=== PATIENT | male | born 1960 | race Caucasian/White ===

== ENCOUNTER 2022-02-27 08:53 | Inpatient (IN) | payer BC ==
[2022-02-27] VITALS (26 sets, daily range): BP systolic 93–115; BP diastolic 60–76
[~2022-02-27] VITALS: Ht 175.3 cm; Wt 101.2 kg
[~2022-02-27 08:53] MED LIST: ALBU2.5V10 INH; ALBU8.5H INH; ALBUTEROL SULFATE 2.5 MG/0.5 ML INH NEB SOLN INH ONE; LIDOCAINE PRES-FREE 2% 10ML AMP NEB ONE
[2022-02-27] MEDS ORDERED: LR 1,000 ML IV SCH (10:00)
[2022-02-27] MEDS ORDERED: CETACAINE SPRAY 5GM As Ordered ONE (10:10)
[2022-02-27] MEDS ORDERED: ISOVUE-300 61% 50ML VIAL As Ordered ONE (10:10)
[2022-02-27] MEDS ORDERED: EPINEPHrine 1MG/10ML SYRINGE 1.5IN As Ordered ONE (10:11)
[2022-02-27] MEDS ORDERED: THROMBIN 5,000 UNITS VIAL As Ordered ONE (10:12)
[2022-02-27 10:39] LABS: TOTAL PROTEIN 6.6 G/DL (5.7-8.2)
[2022-02-27] MEDS ORDERED: MORPHINE 2 MG/ML 1ML VIAL IV PRN (12:05)
[2022-02-27] MEDS ORDERED: oxyCODONE 5MG TAB PO PRN (12:05)
[2022-02-27] MEDS ORDERED: ONDANSETRON 4MG 2ML VIAL IV PRN (12:05)
[2022-02-27] MEDS ORDERED: fentaNYL 100 MCG/2 ML INJECTION IV PRN (12:05)
[2022-02-27] MEDS ORDERED: PROPOFOL 1,000 MG/100 ML VIAL As Ordered ONE (12:06)
[2022-02-27] MEDS ORDERED: MIDAZOLAM INJ 2MG/2ML VIAL (J2250 PER 1MG) As Ordered ONE (12:32)
[2022-02-27] MEDS: MIDAZOLAM INJ 2MG/2ML VIAL (J2250 PER 1MG) IV PRN ×4 (12:35→22:06)
[2022-02-27] MEDS: propofoL 1,000 MG in IV 1 EA IV SCH ×3 (13:01→18:49)
[2022-02-27] MEDS ORDERED: methylPREDNISolone 125MG 2ML VIAL IV ONE (13:10)
[2022-02-27 13:29] LABS: BASO % 0.5 % (0.0-1.0); EOS # 0.2 10^3/uL (0.0-0.5); EOS % 2.4 % (0.0-3.0); HEMATOCRIT 35.9 % (42.0-52.0); HEMOGLOBIN 11.6 g/dl (13.5-17.5); LYMPH # 0.3 10^3/uL (1.5-5.0); LYMPH % 3.8 % (24.0-44.0); MEAN CORPUSCULAR HEMOGLOBIN 30.2 pg (27.0-33.0); MEAN CORPUSCULAR HGB CONC 32.3 g/dl (32.0-36.5); MEAN CORPUSCULAR VOLUME 93.5 fl (80.0-96.0); MONO # 0.6 10^3/uL (0.0-0.8); MONO % 6.8 % (2.0-8.0); NEUTROPHILS # 7.2 10^3/uL (1.5-8.5); PLATELET COUNT, AUTOMATED 514 10^3/uL (150-450); RED BLOOD COUNT 3.84 10^6/uL (4.30-6.10); WHITE BLOOD COUNT 8.4 10^3/uL (4.0-10.0)
[2022-02-27] MEDS: IPRATROPIUM 0.5MG/ALBUTEROL 2.5MG INH SOL UD 3ML (DUONEB) NEB SCH ×3 (13:36→19:48)
[2022-02-27 13:53] LABS: INR 1.22; PROTHROMBIN TIME 15.7 SECONDS (12.5-14.5)
[2022-02-27] MEDS ORDERED: LIDOCAINE 1% MDV 20ML VIAL As Ordered ONE (13:53)
[2022-02-27] MEDS: PANTOPRAZOLE 40MG VIAL IV SCH (13:53)
[2022-02-27] MEDS: CHLORHEXIDINE GLUCONATE 0.12 % 15ML UDC (PERIDEX ORAL RINSE) MT SCH ×2 (13:53→22:04)
[2022-02-27 13:54] LABS: PARTIAL THROMBOPLASTIN TIME 37.1 SECONDS (24.8-34.2)
[2022-02-27] MEDS ORDERED: FENTANYL DRIP LOCK BOX KEY 1 EACH XX PRN (14:00)
[2022-02-27] MEDS ORDERED: fentaNYL CITRATE/NaCl 1,000 MCG in IV 1 EA IV SCH (14:00)
[2022-02-27 14:17] LABS: ABG BASE EXCESS 1.9 (-2.0-2.0); ABG HCO3 28.8 MEQ/L (22.0-26.0); ABG O2 SATURATION 97.2 % (95.0-99.0); ABG PARTIAL PRESSURE CO2 55.5 mmHg (35.0-45.0); ABG PARTIAL PRESSURE O2 97.2 mmHg (75.0-100.0); ABG STANDARD HCO3 26.2 MEQ/L (22.0-26.0); ABG TOTAL CO2 30.5 MEQ/L (23.0-31.0); ABG pH (ARTERIAL) 7.333 UNITS (7.350-7.450)
[2022-02-27 14:42] LABS: ALBUMIN 2.5 G/DL (3.2-5.2); ALT/SGPT 36 U/L (7.0-40); BILIRUBIN,TOTAL 0.4 MG/DL (0.3-1.2); BLOOD UREA NITROGEN 19 MG/DL (9-23); CALCIUM LEVEL 9.7 MG/DL (8.3-10.6); CARBON DIOXIDE LEVEL 28 MMOL/L (20-31); CHLORIDE LEVEL 101 MMOL/L (98-107); CREATININE FOR GFR 0.89 MG/DL (0.70-1.30); GLOMERULAR FILTRATION RATE > 60.0 (>49); GLUCOSE, FASTING 98 MG/DL (74-106); MAGNESIUM LEVEL 2.2 MG/DL (1.8-2.4); PHOSPHORUS LEVEL 5.1 MG/DL (2.4-5.1); POTASSIUM SERUM 5.5 MMOL/L (3.5-5.1); SODIUM LEVEL 136 MMOL/L (136-145); TOTAL PROTEIN 6.2 G/DL (5.7-8.2)
[2022-02-27] MEDS ORDERED: FUROSEMIDE 20MG/2ML VIAL (J1940) IV ONE (16:00)
[2022-02-28] VITALS (42 sets, daily range): BP systolic 78–148; BP diastolic 42–97
[2022-02-28] MEDS: MIDAZOLAM INJ 2MG/2ML VIAL (J2250 PER 1MG) IV PRN (00:39)
[2022-02-28] MEDS ORDERED: METOPROLOL 5 MG/5 ML VIAL IV STA ×2 (00:55→02:23)
[2022-02-28 02:13] LABS: BLOOD UREA NITROGEN 26 MG/DL (9-23); CALCIUM LEVEL 9.5 MG/DL (8.3-10.6); CARBON DIOXIDE LEVEL 25 MMOL/L (20-31); CHLORIDE LEVEL 100 MMOL/L (98-107); CREATININE FOR GFR 0.97 MG/DL (0.70-1.30); GLOMERULAR FILTRATION RATE > 60.0 (>49); GLUCOSE, FASTING 155 MG/DL (74-106); POTASSIUM SERUM 4.9 MMOL/L (3.5-5.1); SODIUM LEVEL 138 MMOL/L (136-145)
[2022-02-28] MEDS ORDERED: AMIODARONE HCL 150 MG in IV 1 EA IV ONE (04:35)
[2022-02-28 04:36] LABS: HEMATOCRIT 35.8 % (42.0-52.0); HEMOGLOBIN 11.5 g/dl (13.5-17.5); MEAN CORPUSCULAR HEMOGLOBIN 29.9 pg (27.0-33.0); MEAN CORPUSCULAR HGB CONC 32.1 g/dl (32.0-36.5); PLATELET COUNT, AUTOMATED 522 10^3/uL (150-450); RED BLOOD COUNT 3.85 10^6/uL (4.30-6.10)
[2022-02-28 04:37] LABS: ABG BASE EXCESS -0.7 (-2.0-2.0); ABG HCO3 27.2 MEQ/L (22.0-26.0); ABG O2 SATURATION 90.2 % (95.0-99.0); ABG PARTIAL PRESSURE CO2 59.1 mmHg (35.0-45.0); ABG PARTIAL PRESSURE O2 64.6 mmHg (75.0-100.0); ABG STANDARD HCO3 23.8 MEQ/L (22.0-26.0); ABG pH (ARTERIAL) 7.281 UNITS (7.350-7.450)
[2022-02-28] MEDS ORDERED: IPRATROPIUM 0.5MG/ALBUTEROL 2.5MG INH SOL UD 3ML (DUONEB) NEB ONE (04:40)
[2022-02-28] MEDS: METOPROLOL 5 MG/5 ML VIAL IV SCH ×2 (04:54→05:55)
[2022-02-28] MEDS ORDERED: AMIODARONE HCL 360 MG in IV 1 EA IV SCH (05:00)
[2022-02-28 05:02] LABS: BLOOD UREA NITROGEN 27 MG/DL (9-23); CALCIUM LEVEL 9.8 MG/DL (8.3-10.6); CARBON DIOXIDE LEVEL 26 MMOL/L (20-31); CHLORIDE LEVEL 100 MMOL/L (98-107); CREATININE FOR GFR 0.92 MG/DL (0.70-1.30); GLOMERULAR FILTRATION RATE > 60.0 (>49); GLUCOSE, FASTING 128 MG/DL (74-106); POTASSIUM SERUM 5.2 MMOL/L (3.5-5.1); SODIUM LEVEL 138 MMOL/L (136-145)
[2022-02-28 05:50] LABS: ABG BASE EXCESS 0.6 (-2.0-2.0); ABG HCO3 26.7 MEQ/L (22.0-26.0); ABG O2 SATURATION 95.8 % (95.0-99.0); ABG PARTIAL PRESSURE CO2 48.8 mmHg (35.0-45.0); ABG TOTAL CO2 28.2 MEQ/L (23.0-31.0); ABG pH (ARTERIAL) 7.356 UNITS (7.350-7.450)
[2022-02-28] MEDS ORDERED: METOPROLOL TART 25 MG TABLET PO SCH (06:00)
[2022-02-28] MEDS ORDERED: LORazepam 2 MG TAB PO PRN (07:40)
[2022-02-28] MEDS: LEVALBUTEROL 1.25 MG/0.5 ML CONCENTRATE NEB NEB SCH ×4 (07:44→20:35)
[2022-02-28] MEDS: THIAMINE 100 MG TAB PO SCH ×2 (08:16→21:20)
[2022-02-28] MEDS: MULTIVITAMINS/MINERALS THERAP 1 TAB PO SCH (08:16)
[2022-02-28] MEDS: FOLIC ACID 1MG TAB PO SCH (08:16)
[2022-02-28] MEDS: OXAZEPAM 15MG CAP PO SCH ×2 (08:16→21:21)
[2022-02-28] MEDS ORDERED: ACETAMINOPHEN TAB 650MG DOSE (2X325MG) PO PRN (09:00)
[2022-02-28] MEDS: PANTOPRAZOLE 40MG VIAL IV SCH (09:03)
[2022-02-28] MEDS: PIPERACILLIN/TAZOBACTAM SOD 3.375 GM in D5W MINI-BAG PLUS 50 ML IV SCH ×3 (09:52→21:20)
[2022-02-28] MEDS: AMIODARONE HCL 360 MG in IV 1 EA IV SCH ×2 (10:46→22:53)
[2022-02-28] MEDS ORDERED: ISOVUE-370 76% 100ML VIAL As Ordered ONE (11:33)
[2022-02-28 12:01] LABS: THYROID STIMULATING HORMONE 1.331 uIU/ML (0.55-4.78)
[2022-02-28] MEDS: METOPROLOL TART 25 MG TABLET PO SCH ×2 (14:50→21:21)
[2022-03-01] VITALS (15 sets, daily range): BP systolic 105–155; BP diastolic 56–96
[2022-03-01] MEDS: PIPERACILLIN/TAZOBACTAM SOD 3.375 GM in D5W MINI-BAG PLUS 50 ML IV SCH ×4 (04:14→21:09)
[2022-03-01 04:36] LABS: HEMATOCRIT 36.2 % (42.0-52.0); HEMOGLOBIN 11.6 g/dl (13.5-17.5); MEAN CORPUSCULAR HEMOGLOBIN 29.8 pg (27.0-33.0); MEAN CORPUSCULAR VOLUME 93.1 fl (80.0-96.0); PLATELET COUNT, AUTOMATED 518 10^3/uL (150-450); RED BLOOD COUNT 3.89 10^6/uL (4.30-6.10); WHITE BLOOD COUNT 8.5 10^3/uL (4.0-10.0)
[2022-03-01] MEDS: METOPROLOL TART 25 MG TABLET PO SCH ×3 (05:07→21:09)
[2022-03-01 05:19] LABS: BLOOD UREA NITROGEN 20 MG/DL (9-23); CALCIUM LEVEL 9.6 MG/DL (8.3-10.6); CARBON DIOXIDE LEVEL 31 MMOL/L (20-31); CHLORIDE LEVEL 98 MMOL/L (98-107); CREATININE FOR GFR 0.78 MG/DL (0.70-1.30); GLOMERULAR FILTRATION RATE > 60.0 (>49); GLUCOSE, FASTING 105 MG/DL (74-106); MAGNESIUM LEVEL 2.2 MG/DL (1.8-2.4); POTASSIUM SERUM 4.2 MMOL/L (3.5-5.1); SODIUM LEVEL 137 MMOL/L (136-145)
[2022-03-01 05:42] LABS: ABG BASE EXCESS 4.7 (-2.0-2.0); ABG HCO3 30.4 MEQ/L (22.0-26.0); ABG O2 SATURATION 97.3 % (95.0-99.0); ABG PARTIAL PRESSURE O2 92.9 mmHg (75.0-100.0); ABG STANDARD HCO3 28.7 MEQ/L (22.0-26.0); ABG TOTAL CO2 31.9 MEQ/L (23.0-31.0)
[2022-03-01] MEDS: LEVALBUTEROL 1.25 MG/0.5 ML CONCENTRATE NEB NEB SCH ×4 (07:42→20:07)
[2022-03-01] MEDS: MULTIVITAMINS/MINERALS THERAP 1 TAB PO SCH (09:51)
[2022-03-01] MEDS: FOLIC ACID 1MG TAB PO SCH (09:51)
[2022-03-01] MEDS: PANTOPRAZOLE 40MG TAB (PROTONIX) PO SCH (09:51)
[2022-03-01] MEDS: OXAZEPAM 15MG CAP PO SCH ×2 (09:51→20:00)
[2022-03-01] MEDS: THIAMINE 100 MG TAB PO SCH ×2 (09:52→20:01)
[2022-03-01] MEDS ORDERED: METOPROLOL 5 MG/5 ML VIAL IV STA (13:11)
[2022-03-01] MEDS ORDERED: ISOVUE-370 76% 100ML VIAL As Ordered ONE (15:57)
[2022-03-01] MEDS ORDERED: LORazepam 2 MG TAB PO STA (17:06)
[2022-03-01] MEDS ORDERED: LORazepam 2 MG/ML VIAL IV STA (17:57)
[2022-03-01] MEDS ORDERED: AMIODARONE HCL 150 MG in IV 1 EA IV ONE (18:00)
[2022-03-01] MEDS ORDERED: AMIODARONE HCL 360 MG in IV 1 EA IV SCH (19:00)
[2022-03-01] MEDS: METOPROLOL 5 MG/5 ML VIAL IV SCH ×3 (20:43→21:08)
[2022-03-02] VITALS: BP 157/92
[2022-03-02] MEDS ORDERED: AMIODARONE HCL 360 MG in IV 1 EA IV SCH (01:00)
[2022-03-02] MEDS: PIPERACILLIN/TAZOBACTAM SOD 3.375 GM in D5W MINI-BAG PLUS 50 ML IV SCH ×2 (03:23→11:20)
[2022-03-02 04:00] VITALS: BP 157/88
[2022-03-02 04:56] LABS: HEMATOCRIT 39.4 % (42.0-52.0); HEMOGLOBIN 12.3 g/dl (13.5-17.5); MEAN CORPUSCULAR HEMOGLOBIN 29.6 pg (27.0-33.0); MEAN CORPUSCULAR HGB CONC 31.2 g/dl (32.0-36.5); MEAN CORPUSCULAR VOLUME 94.9 fl (80.0-96.0); PLATELET COUNT, AUTOMATED 548 10^3/uL (150-450); RED BLOOD COUNT 4.15 10^6/uL (4.30-6.10); WHITE BLOOD COUNT 9.3 10^3/uL (4.0-10.0)
[2022-03-02 05:41] LABS: BLOOD UREA NITROGEN 15 MG/DL (9-23); CALCIUM LEVEL 9.9 MG/DL (8.3-10.6); CARBON DIOXIDE LEVEL 27 MMOL/L (20-31); CHLORIDE LEVEL 98 MMOL/L (98-107); GLOMERULAR FILTRATION RATE > 60.0 (>49); GLUCOSE, FASTING 133 MG/DL (74-106); MAGNESIUM LEVEL 2.1 MG/DL (1.8-2.4); POTASSIUM SERUM 4.3 MMOL/L (3.5-5.1); SODIUM LEVEL 134 MMOL/L (136-145)
[2022-03-02] MEDS: METOPROLOL TART 25 MG TABLET PO SCH ×2 (05:46→13:28)
[2022-03-02 05:57] LABS: ABG BASE EXCESS 2.2 (-2.0-2.0); ABG HCO3 26.9 MEQ/L (22.0-26.0); ABG O2 SATURATION 98.4 % (95.0-99.0); ABG PARTIAL PRESSURE CO2 41.9 mmHg (35.0-45.0); ABG PARTIAL PRESSURE O2 117.9 mmHg (75.0-100.0); ABG STANDARD HCO3 26.5 MEQ/L (22.0-26.0); ABG TOTAL CO2 28.2 MEQ/L (23.0-31.0); ABG pH (ARTERIAL) 7.425 UNITS (7.350-7.450)
[2022-03-02 07:27] VITALS: O2SAT 98
[2022-03-02] MEDS: LEVALBUTEROL 1.25 MG/0.5 ML CONCENTRATE NEB NEB SCH (07:27)
[2022-03-02 08:29] VITALS: BP 142/79
[2022-03-02] MEDS ORDERED: ALBUTEROL SULFATE 2.5 MG/0.5 ML INH NEB SOLN INH PRN (08:50)
[2022-03-02] MEDS ORDERED: ALBUTEROL 90 MCG/ACT 8GM HFA INHALER INH PRN (08:50)
[2022-03-02] MEDS ORDERED: ASPIRIN 81MG ENTERIC TABLET PO SCH (09:00)
[2022-03-02] MEDS ORDERED: AMIODARONE 200 MG TAB (PACERONE) PO SCH (09:00)
[2022-03-02] MEDS: PANTOPRAZOLE 40MG TAB (PROTONIX) PO SCH (09:32)
[2022-03-02] MEDS: FOLIC ACID 1MG TAB PO SCH (09:32)
[2022-03-02] MEDS: THIAMINE 100 MG TAB PO SCH (09:33)
[2022-03-02] MEDS: MULTIVITAMINS/MINERALS THERAP 1 TAB PO SCH (09:33)
[2022-03-02] MEDS ORDERED: ISOVUE-370 76% 100ML VIAL As Ordered ONE (09:39)
[2022-03-02] MEDS ORDERED: THIA100TA PO (12:18)
[2022-03-02] MEDS ORDERED: FOLI1TAB11 PO (12:18)
[2022-03-02] MEDS ORDERED: ASPI81TAEC PO (12:18)
[2022-03-02] MEDS ORDERED: VITMTA PO (12:18)
[2022-03-02] MEDS ORDERED: ACET1TAB55 PO (12:18)
[2022-03-02] MEDS ORDERED: METO1TAB87 PO (12:18)
[2022-03-02] MEDS ORDERED: AMIO200T49 PO (12:18)
[2022-03-02] MEDS ORDERED: LEVO1TAB40 PO (12:18)
[2022-03-02] MEDS ORDERED: MIRA3350 PO (12:21)
[2022-03-02] MEDS ORDERED: LevoFLOXacin 750 MG TABLET PO SCH (13:00)
[2022-03-02 13:28] VITALS: BP 162/85
== END 2022-03-02 14:28 | disposition home or self-care (01) | DRG 133 ==
LOC: M SDC 08:53 → M ED INP 12:50 → M ICU 13:11
PROVIDERS: ADMIT Internal Medicine; ATTEND Student in an Organized Health Care Education/Training Program
PROC: 5A1935Z Respiratory Ventilation, Less than 24 Consecutive Hours (ICD-10-PCS; 2022-02-27)
PROC: 0WBC3ZX Excision of Mediastinum, Percutaneous Approach, Diagnostic (ICD-10-PCS; principal; 2022-02-27 10:30)
PROC: 0BJ08ZZ Inspection of Tracheobronchial Tree, Via Natural or Artificial Opening Endoscopic (ICD-10-PCS; 2022-02-28)
PROC: B246ZZZ Ultrasonography of Right and Left Heart (ICD-10-PCS; 2022-03-02)
DX: J96.01 Acute respiratory failure with hypoxia (principal); F17.210 Nicotine dependence, cigarettes, uncomplicated; F10.10 Alcohol abuse, uncomplicated; E66.9 Obesity, unspecified; Z66 Do not resuscitate; Z88.5 Allergy status to narcotic agent; J90 Pleural effusion, not elsewhere classified; I48.91 Unspecified atrial fibrillation; D38.3 Neoplasm of uncertain behavior of mediastinum; J18.9 Pneumonia, unspecified organism; C49.9 Malignant neoplasm of connective and soft tissue, unspecified; I50.32 Chronic diastolic (congestive) heart failure; I27.20 Pulmonary hypertension, unspecified; J44.1 Chronic obstructive pulmonary disease with (acute) exacerbation

== ENCOUNTER → 2022-03-05 | Outpatient (CLI) | payer BC ==
[~2022-03-05] MED LIST changes: +ACET1TAB55 PO; -ALBUTEROL SULFATE 2.5 MG/0.5 ML INH NEB SOLN INH ONE; +AMIO200T49 PO; +ASPI81TAEC PO; +FOLI1TAB11 PO; +LEVO1TAB40 PO; -LIDOCAINE PRES-FREE 2% 10ML AMP NEB ONE; +METO1TAB87 PO; +MIRA3350 PO; +THIA100TA PO; +VITMTA PO
== END ==
LOC: M ONCR 13:03
PROVIDERS: ATTEND Radiology Radiation Oncology
DX: C38.4 Malignant neoplasm of pleura (principal); C38.1 Malignant neoplasm of anterior mediastinum; C76.1 Malignant neoplasm of thorax; F10.10 Alcohol abuse, uncomplicated; E66.9 Obesity, unspecified; I48.91 Unspecified atrial fibrillation; Z79.82 Long term (current) use of aspirin; Z80.0 Family history of malignant neoplasm of digestive organs; Z80.42 Family history of malignant neoplasm of prostate; Z87.891 Personal history of nicotine dependence; Z88.5 Allergy status to narcotic agent